=== PATIENT | male | born 1955 | race Caucasian/White ===

== ENCOUNTER 2018-11-29 07:53 | Outpatient (CLI) | payer MEDICARE, OTHER ==
--- NOTE | 2018-11-29 08:22 | ULT ---
Abdominal aortic sonogram HISTORY: Screening. Tobacco abuse. Hypertension. FINDINGS: Good color and spectral Doppler flow within the abdominal aorta and common iliac arteries. Abdominal aorta measures up to 1.7 cm AP diameter. No free fluid within the retroperitoneum. No significant abnormalities demonstrated. IMPRESSION: No sonographic evidence of abdominal aortic aneurysm.
== END 2018-11-29 07:54 | disposition home or self-care (01) ==
LOC: BICULT 07:53
PROVIDERS: ATTEND Family Medicine
DX: F17.200 Nicotine dependence, unspecified, uncomplicated (principal)
CPT/HCPCS: 76775

== ENCOUNTER 2020-07-24 09:02 | Outpatient (CLI) | payer MEDICARE, OTHER ==
--- NOTE | 2020-07-24 09:50 | ULT ---
GALLBLADDER ULTRASOUND: Date: 07/24/2020 INDICATION: Elevated liver function test. FINDINGS: Gallbladder has a normal sonographic appearance. No evidence of gallstones. Common bile duct normal c aliber, measured at 4.0 mm. Liver appears unremarkable. Pancreas partially obscured, but unremarkable as visualized. Right kidney is imaged and is unremarkable in appearance. Negative Saldana's sign is described. IMPRESSION: Unremarkable gallbladder ultrasound. POS: [facility]
== END 2020-07-24 09:03 | disposition home or self-care (01) ==
LOC: BICULT 09:02
PROVIDERS: ATTEND Family Medicine
DX: R94.5 Abnormal results of liver function studies (principal)
CPT/HCPCS: 76705

== ENCOUNTER 2022-06-18 11:50 | Outpatient (CLI) | payer MEDICARE, OTHER | END 2022-06-18 11:51 | disposition home or self-care (01) | LOC: BICULT 11:50 | PROVIDERS: ATTEND Family Medicine | DX: F17.211 Nicotine dependence, cigarettes, in remission (principal) | CPT/HCPCS: 76775 ==

== ENCOUNTER 2023-03-10 18:00 | Inpatient (IN) | payer MEDICARE, OTHER ==
[~2023-03-10 18:00] MED LIST: Iopamidol-370 76% 500 ML MDV (1 ML CHARGE) ONE
[2023-03-10 19:13] LABS: #Eosinphils 0.1 thou/uL (0.0-0.7); #Monocytes 1.7 thou/uL (0.11-0.59); #Neutrophils 7.6 thou/uL (1.40-6.50); %Basophils 0.4 % (0.0-1.0); %Eosinophils 0.4 % (0.0-10.0); %Lymphocytes 16.3 % (21.0-51.0); %Monocytes 15.1 % (0.0-10.0); %Neutrophils 67.4 % (42.0-75.0); Hemoglobin 15.3 g/dL (14.0-18.0); Mean Corpuscular HGB CONC 32.6 g/dL (32.0-36.0); Mean Corpuscular Hemoglobin 28.5 pg (27.0-31.0); Mean Corpuscular Volume 87.5 fl (78.0-98.0); Mean Platelet Volume 10.3 fL (7.4-10.4); Platelet Count 380 10x3/uL (130-400); RBC Distribution Width 13.1 % (11.5-14.5); Red Blood Cell (RBC) Count 5.37 mill/uL (4.70-6.10); White Blood Cell (WBC) Count 11.2 10x3/uL (4.8-10.8)
[2023-03-10 19:26] LABS: INR-International Normal Ratio 1.3; PTT 30.2 sec (22.9-36.1); Prothrombin Time 16.6 sec (12.0-14.7)
[2023-03-10] MEDS ORDERED: Dexamethasone 10 MG/ML VIAL ONE (19:33)
[2023-03-10] MEDS ORDERED: Ondansetron PF 4 MG/2 ML Vial ONE (19:33)
[2023-03-10 19:37] LABS: ALT (SGPT) 16 U/L (8-55); AST (SGOT) 26 U/L (5-34); Albumin 4.1 g/dL (3.4-4.8); Alkaline Phosphatase 128 U/L (40-110); Anion Gap 11 mmol/L (10-20); BUN (Urea Nitrogen) 20 mg/dL (8.4-25.7); Bilirubin, Total 0.7 mg/dL (0.2-1.2); CK (CPK) 95 U/L (30-200); Calc. Creatinine Clearance 0 mL/min (70-130); Calcium 9.6 mg/dL (7.8-10.44); Carbon Dioxide 26 mmol/L (23-31); Chloride 103 mmol/L (98-107); Estimated GFR 73; Globulin 3.1 g/dL (2.4-3.5); Glucose 99 mg/dL (80-115); Potassium 4.4 mmol/L (3.5-5.1); Protein, Total 7.2 g/dL (5.8-8.1); Sodium 136 mmol/L (136-145)
[2023-03-10] MEDS ORDERED: Acetaminophen 325 MG TAB PO PRN (20:32)
[2023-03-10] MEDS ORDERED: Acetaminophen 500 MG TAB ONE (20:32)
[2023-03-10] MEDS ORDERED: Electrolyte Replacement Protocol 1 EACH IVPB SCH (20:32)
[2023-03-10] MEDS ORDERED: Dexamethasone 4 MG in Sodium Chloride 0.9% 50 ML IVPB SCH (21:00)
[2023-03-10] MEDS ORDERED: Atorvastatin Calcium 20 MG TAB PO SCH (21:00)
[2023-03-10] MEDS: Dexamethasone 4 mg/ml Vial SLOW IVP SCH (23:55)
[2023-03-11] MEDS ORDERED: Ipratropium/Albuterol 3 ML NEB NEB PRN (00:17)
[2023-03-11 03:11] VITALS: BMI 26.4
[2023-03-11] MEDS: Dexamethasone 4 mg/ml Vial SLOW IVP SCH ×4 (04:16→21:51)
[2023-03-11 04:18] LABS: #Monocytes 0.1 thou/uL (0.11-0.59); #Neutrophils 7.3 thou/uL (1.40-6.50); %Basophils 0.1 % (0.0-1.0); %Lymphocytes 10.6 % (21.0-51.0); %Monocytes 1.4 % (0.0-10.0); %Neutrophils 87.5 % (42.0-75.0); Hematocrit 45.8 % (42.0-52.0); Hemoglobin 15.1 g/dL (14.0-18.0); Mean Corpuscular Hemoglobin 28.4 pg (27.0-31.0); Mean Corpuscular Volume 86.1 fl (78.0-98.0); Mean Platelet Volume 10.7 fL (7.4-10.4); Platelet Count 349 10x3/uL (130-400); Red Blood Cell (RBC) Count 5.32 mill/uL (4.70-6.10); White Blood Cell (WBC) Count 8.3 10x3/uL (4.8-10.8)
[2023-03-11 04:48] LABS: ALT (SGPT) 15 U/L (8-55); AST (SGOT) 23 U/L (5-34); Albumin 3.8 g/dL (3.4-4.8); Alkaline Phosphatase 123 U/L (40-110); Anion Gap 15 mmol/L (10-20); BUN (Urea Nitrogen) 20 mg/dL (8.4-25.7); Bilirubin, Total 0.6 mg/dL (0.2-1.2); Calc. Creatinine Clearance 83 mL/min (70-130); Calcium 9.3 mg/dL (7.8-10.44); Carbon Dioxide 22 mmol/L (23-31); Chloride 101 mmol/L (98-107); Estimated GFR 82; Globulin 3.4 g/dL (2.4-3.5); Glucose 125 mg/dL (80-115); Magnesium 1.9 mg/dL (1.6-2.6); Potassium 4.4 mmol/L (3.5-5.1); Protein, Total 7.2 g/dL (5.8-8.1); Sodium 134 mmol/L (136-145)
[2023-03-11 04:51] LABS: Phosphorus 3.6 mg/dL (2.3-4.7)
[2023-03-11] MEDS: Divalproex Sodium DR 500 MG TAB PO SCH (07:41)
[2023-03-11] MEDS: Losartan 25 MG TAB PO SCH (07:41)
[2023-03-11] MEDS: Metoprolol Tartrate 50 MG TAB PO SCH ×2 (07:41→19:42)
[2023-03-11] MEDS ORDERED: Magnesium 2 GM/50 ML(in water) 2 GM in Premix Bag 1 BAG IVPB SCH (08:00)
[2023-03-11] MEDS ORDERED: Magnevist 469MG/ML 20 ML VIAL ONE (10:52)
[2023-03-11] MEDS: Atorvastatin Calcium 20 MG TAB PO SCH (19:42)
[2023-03-12] MEDS: Dexamethasone 4 mg/ml Vial SLOW IVP SCH ×4 (04:15→21:02)
[2023-03-12 04:24] LABS: #Monocytes 1.4 thou/uL (0.11-0.59); #Neutrophils 19.6 thou/uL (1.40-6.50); %Basophils 0.1 % (0.0-1.0); %Lymphocytes 5.8 % (21.0-51.0); %Neutrophils 87.5 % (42.0-75.0); Hematocrit 42.8 % (42.0-52.0); Hemoglobin 14.4 g/dL (14.0-18.0); Mean Corpuscular HGB CONC 33.6 g/dL (32.0-36.0); Mean Corpuscular Hemoglobin 28.5 pg (27.0-31.0); Mean Corpuscular Volume 84.6 fl (78.0-98.0); Mean Platelet Volume 11.3 fL (7.4-10.4); Platelet Count 397 10x3/uL (130-400); RBC Distribution Width 13.1 % (11.5-14.5); Red Blood Cell (RBC) Count 5.06 mill/uL (4.70-6.10); White Blood Cell (WBC) Count 22.4 10x3/uL (4.8-10.8)
[2023-03-12 04:47] LABS: ALT (SGPT) 16 U/L (8-55); AST (SGOT) 22 U/L (5-34); Albumin 3.7 g/dL (3.4-4.8); Alkaline Phosphatase 112 U/L (40-110); Anion Gap 15 mmol/L (10-20); BUN (Urea Nitrogen) 27 mg/dL (8.4-25.7); Bilirubin, Total 0.5 mg/dL (0.2-1.2); Calc. Creatinine Clearance 82 mL/min (70-130); Calcium 9.4 mg/dL (7.8-10.44); Carbon Dioxide 20 mmol/L (23-31); Chloride 104 mmol/L (98-107); Estimated GFR 81; Globulin 3.2 g/dL (2.4-3.5); Glucose 125 mg/dL (80-115); Potassium 4.4 mmol/L (3.5-5.1); Protein, Total 6.9 g/dL (5.8-8.1); Sodium 135 mmol/L (136-145)
[2023-03-12] MEDS: Sodium Chloride 0.9% 1,000 ML IV SCH (05:53)
[2023-03-12] MEDS: Metoprolol Tartrate 50 MG TAB PO SCH ×2 (07:42→21:02)
[2023-03-12] MEDS ORDERED: fentaNYL PF 100 MCG/2 ML SYRINGE ONE (09:33)
[2023-03-12] MEDS ORDERED: Midazolam HCl 2 mg/2 ml Vial ONE (09:33)
[2023-03-12] MEDS ORDERED: Lidocaine 1% PF 5 ML VIAL ONE (09:59)
[2023-03-12] MEDS ORDERED: PROPOFOL 200 MG/20 ML VIAL ONE (09:59)
[2023-03-12] MEDS ORDERED: Rocuronium Bromide 10 MG/ML (10ML VIAL) ONE (09:59)
[2023-03-12] MEDS: Divalproex Sodium DR 500 MG TAB PO SCH (12:11)
[2023-03-12] MEDS: Losartan 25 MG TAB PO SCH (12:11)
[2023-03-12] MEDS ORDERED: Divalproex Sodium DR 500 MG TAB PO SCH (14:00)
[2023-03-12 16:10] VITALS: BP 97/63
[2023-03-12] MEDS: Atorvastatin Calcium 20 MG TAB PO SCH (21:02)
[2023-03-13] MEDS: Sodium Chloride 0.9% 1,000 ML IV SCH (01:44)
[2023-03-13] MEDS: Dexamethasone 4 mg/ml Vial SLOW IVP SCH ×2 (03:07→08:59)
[2023-03-13 03:49] LABS: #Monocytes 1.4 thou/uL (0.11-0.59); #Neutrophils 19.7 thou/uL (1.40-6.50); %Basophils 0.1 % (0.0-1.0); %Monocytes 6.1 % (0.0-10.0); %Neutrophils 88.2 % (42.0-75.0); Hematocrit 43.1 % (42.0-52.0); Hemoglobin 13.9 g/dL (14.0-18.0); Mean Corpuscular HGB CONC 32.3 g/dL (32.0-36.0); Mean Corpuscular Hemoglobin 28.7 pg (27.0-31.0); Mean Platelet Volume 10.9 fL (7.4-10.4); Platelet Count 349 10x3/uL (130-400); RBC Distribution Width 13.5 % (11.5-14.5); Red Blood Cell (RBC) Count 4.84 mill/uL (4.70-6.10); White Blood Cell (WBC) Count 22.4 10x3/uL (4.8-10.8)
[2023-03-13 04:14] LABS: ALT (SGPT) 18 U/L (8-55); AST (SGOT) 23 U/L (5-34); Albumin 3.5 g/dL (3.4-4.8); Alkaline Phosphatase 103 U/L (40-110); Anion Gap 13 mmol/L (10-20); BUN (Urea Nitrogen) 28 mg/dL (8.4-25.7); Bilirubin, Total 0.4 mg/dL (0.2-1.2); Calc. Creatinine Clearance 101 mL/min (70-130); Calcium 8.9 mg/dL (7.8-10.44); Carbon Dioxide 21 mmol/L (23-31); Chloride 107 mmol/L (98-107); Estimated GFR 95; Glucose 112 mg/dL (80-115); Potassium 4.4 mmol/L (3.5-5.1); Protein, Total 6.5 g/dL (5.8-8.1); Sodium 137 mmol/L (136-145)
[2023-03-13] MEDS: Losartan 25 MG TAB PO SCH (08:57)
[2023-03-13] MEDS: Metoprolol Tartrate 50 MG TAB PO SCH (08:57)
[2023-03-13] MEDS ORDERED: Divalproex Sodium DR 500 MG TAB PO SCH ×2 (09:00)
[2023-03-13 11:57] VITALS: TEMP 97.4
== END 2023-03-13 15:20 | disposition home or self-care (01) | DRG 166 ==
LOC: ERS 18:00 → ERHOLD 19:35 → IMCU/EMU 03-11 00:46
PROVIDERS: ADMIT Family Medicine; ATTEND Family Medicine
PROC: 0BBD8ZX Excision of Right Middle Lung Lobe, Via Natural or Artificial Opening Endoscopic, Diagnostic (ICD-10-PCS; principal; 2023-03-12)
PROC: 0BD58ZX Extraction of Right Middle Lobe Bronchus, Via Natural or Artificial Opening Endoscopic, Diagnostic (ICD-10-PCS; 2023-03-12)
PROC: 0BB68ZX Excision of Right Lower Lobe Bronchus, Via Natural or Artificial Opening Endoscopic, Diagnostic (ICD-10-PCS; 2023-03-12)
PROC: 0BB58ZX Excision of Right Middle Lobe Bronchus, Via Natural or Artificial Opening Endoscopic, Diagnostic (ICD-10-PCS; 2023-03-12)
PROC: 4A10X4Z Monitoring of Central Nervous Electrical Activity, External Approach (ICD-10-PCS; 2023-03-13)
DX: R91.1 Solitary pulmonary nodule (principal); G93.6 Cerebral edema; I48.92 Unspecified atrial flutter; C79.31 Secondary malignant neoplasm of brain; G91.9 Hydrocephalus, unspecified; G93.9 Disorder of brain, unspecified; I12.9 Hypertensive chronic kidney disease with stage 1 through stage 4 chronic kidney disease, or unspecified chronic kidney disease; N18.2 Chronic kidney disease, stage 2 (mild); G40.909 Epilepsy, unspecified, not intractable, without status epilepticus; E78.5 Hyperlipidemia, unspecified; D63.1 Anemia in chronic kidney disease; R91.8 Other nonspecific abnormal finding of lung field; I48.91 Unspecified atrial fibrillation; R53.1 Weakness; Z90.89 Acquired absence of other organs; Z98.890 Other specified postprocedural states; Z87.891 Personal history of nicotine dependence
CPT/HCPCS: 36415; 70450; 70553; 71045; 71260; 74177; 80053; 80164; 82550; 83605; 83735; 84100; 84484; 85025; 85610; 85730; 86140; 86850; 86900; 86901; 88112; 88305; 93005; 94760; 95712; 95819; 95957; 96374; 96375; A9579; J1100; J2250; J2405; J2704; J3475; J7050; Q9967

== ENCOUNTER 2023-03-20 13:47 | Outpatient (CLI) | payer MEDICARE, OTHER ==
[2023-03-20 14:50] LABS: Hematocrit 39.3 % (38.8-50.0); Hemoglobin 13.1 g/dL (13.5-17.5); Mean Corpuscular HGB CONC 33.3 g/dL (32.0-36.0); Mean Corpuscular Hemoglobin 28.8 pg (27.0-33.0); Mean Corpuscular Volume 86.4 fl (81.2-95.1); Mean Platelet Volume 11.9 fl (7.4-10.4); Platelet Count 263 10x3/uL (150-450); RBC Distribution Width 13.9 % (11.5-14.5); Red Blood Cell (RBC) Count 4.55 10x6/uL (4.32-5.72); White Blood Cell (WBC) Count 18.4 10x3/uL (3.5-10.5)
[2023-03-20 14:52] LABS: Anion Gap 13 mmol/L (10-20); BUN (Urea Nitrogen) 22 mg/dL (8.4-25.7); Calc. Creatinine Clearance 0 mL/min (70-130); Calcium 8.9 mg/dL (7.8-10.44); Carbon Dioxide 27 mmol/L (23-31); Chloride 103 mmol/L (98-107); Estimated GFR 93; Glucose 108 mg/dL (80-115); Potassium 4.5 mmol/L (3.5-5.1); Sodium 138 mmol/L (136-145)
== END 2023-03-20 13:48 | disposition home or self-care (01) ==
LOC: LABBT 13:47
PROVIDERS: ATTEND Neurological Surgery
DX: Z01.812 Encounter for preprocedural laboratory examination (principal); D49.6 Neoplasm of unspecified behavior of brain
CPT/HCPCS: 80048; 85027

== ENCOUNTER 2023-03-20 14:00 | Inpatient (IN) | payer MEDICARE, OTHER ==
[2023-03-23] MEDS ORDERED: Bacitracin Zinc Ointment 30 gm TUBE ONE (10:08)
[2023-03-23] MEDS ORDERED: Papaverine 60 MG/2 ML VIAL ONE (10:54)
[2023-03-23] MEDS ORDERED: Thrombin 5000 UNITS/5 ML VIAL ONE (10:55)
[2023-03-23] MEDS ORDERED: Fentanyl 250 MCG/5 ML VIAL ONE (11:08)
[2023-03-23] MEDS ORDERED: Midazolam HCl 2 mg/2 ml Vial ONE (11:08)
[2023-03-23] MEDS ORDERED: CEFAZOLIN 2 GM VIAL ONE (11:09)
[2023-03-23] MEDS ORDERED: Sodium Chloride 0.9% 100 ML ONE (11:09)
[2023-03-23] MEDS ORDERED: Dexamethasone 20 MG/5 ML VIAL ONE (11:17)
[2023-03-23] MEDS ORDERED: Rocuronium Bromide 10 MG/ML (10ML VIAL) ONE (11:17)
[2023-03-23] MEDS ORDERED: PROPOFOL 200 MG/20 ML VIAL ONE (11:17)
[2023-03-23] MEDS ORDERED: Glycopyrrolate 0.2 MG/ML 5 ML SYRINGE ONE (11:17)
[2023-03-23] MEDS ORDERED: Lidocaine 1% PF 5 ML VIAL ONE (11:17)
[2023-03-23] MEDS ORDERED: Ondansetron PF 4 MG/2 ML Vial ONE (11:17)
[2023-03-23] MEDS ORDERED: ePHEDrine Sulfate 50 MG/10 ML VIAL ONE (11:17)
[2023-03-23] MEDS ORDERED: HYDROcodone/Acetaminophen 10/325 mg Tablet PO PRN (11:32)
[2023-03-23] MEDS ORDERED: Ondansetron PF 4 MG/2 ML Vial IVP PRN (11:32)
[2023-03-23] MEDS ORDERED: Docusate 100 MG CAP PO PRN (11:32)
[2023-03-23] MEDS ORDERED: hydrALAZINE 20 MG/ML VIAL SLOW IVP PRN (11:32)
[2023-03-23] MEDS ORDERED: Labetalol HCl 100 MG/20 ML VIAL SLOW IVP PRN (11:32)
[2023-03-23] MEDS ORDERED: Mag-Al 1200 mg/1200 mg/30 ML UDCUP PO PRN (11:32)
[2023-03-23] MEDS ORDERED: Promethazine 25 MG TAB PO PRN (11:32)
[2023-03-23] MEDS ORDERED: diphenhydrAMINE 50 MG/ML VIAL IVP PRN (11:32)
[2023-03-23] MEDS ORDERED: Morphine 2 MG/ML VIAL SLOW IVP PRN (11:32)
[2023-03-23] MEDS ORDERED: SUGAMMADEX SODIUM 200 MG/2 ML VIAL ONE (13:21)
[2023-03-23] MEDS ORDERED: niCARdipine 25 MG in Sodium Chloride 0.9% 250 ML 250 ML IVPB SCH (13:30)
[2023-03-23] MEDS ORDERED: HYDROmorphone 2 MG/ML VIAL SLOW IVP PRN (13:43)
[2023-03-23] MEDS ORDERED: Ondansetron HCl/PF 4 MG/2 ML Vial IVP PRN (13:43)
[2023-03-23] MEDS ORDERED: Promethazine HCl 25 MG/ML VIAL IM PRN (13:43)
[2023-03-23] MEDS ORDERED: fentaNYL 50 mcg/mL 1 mL Vial ONE (16:06)
[2023-03-23] MEDS: Dexamethasone 4 mg/ml Vial SLOW IVP SCH ×2 (16:41→20:59)
[2023-03-23] MEDS: Sodium Chloride 0.9% 1,000 ML IV SCH ×3 (16:41→21:00)
[2023-03-23 16:44] VITALS: BMI 29.8
[2023-03-23] MEDS: CEFAZOLIN 2 GM in Sodium Chloride 0.9% 100 ML IVPB SCH (18:32)
[2023-03-23] MEDS: Divalproex Sodium DR 500 MG TAB PO SCH (21:07)
[2023-03-23] MEDS: Famotidine 20 MG TAB PO SCH (21:08)
[2023-03-23] MEDS: Metoprolol Tartrate 50 MG TAB PO SCH (21:08)
[2023-03-24] MEDS: CEFAZOLIN 2 GM in Sodium Chloride 0.9% 100 ML IVPB SCH (02:06)
[2023-03-24] MEDS: Dexamethasone 4 mg/ml Vial SLOW IVP SCH ×2 (04:26→15:28)
[2023-03-24] MEDS: HYDROcodone/Acetaminophen 10/325 mg Tablet PO PRN ×2 (04:34→14:52)
[2023-03-24] MEDS ORDERED: Dexamethasone 4 mg/ml Vial SLOW IVP SCH (06:15)
[2023-03-24] MEDS ORDERED: niCARdipine 25 MG in Sodium Chloride 0.9% 250 ML 250 ML IVPB SCH (06:38)
[2023-03-24] MEDS: Famotidine 20 MG TAB PO SCH (08:37)
[2023-03-24] MEDS: Metoprolol Tartrate 50 MG TAB PO SCH ×2 (08:37→20:46)
[2023-03-24] MEDS: Divalproex Sodium DR 500 MG TAB PO SCH ×2 (08:37→21:13)
[2023-03-24] MEDS ORDERED: Losartan 25 MG TAB PO SCH (09:00)
[2023-03-24 16:35] VITALS: BP 136/58
[2023-03-24] MEDS: Sodium Chloride 0.9% 1,000 ML IV SCH (17:16)
[2023-03-25 00:54] VITALS: TEMP 97.9
[2023-03-25] MEDS: Sodium Chloride 0.9% 1,000 ML IV SCH (04:22)
[2023-03-25] MEDS: Dexamethasone 4 mg/ml Vial SLOW IVP SCH (04:23)
[2025-03-23] MEDS ORDERED: Mannitol 12.5 GM/50 ML ONE (11:17)
== END 2023-03-25 08:19 | disposition home or self-care (01) | DRG 27 ==
LOC: SURG A 03-23 07:42 → CCU 03-23 16:38
PROVIDERS: ADMIT Neurological Surgery; ATTEND Neurological Surgery
PROC: 00B00ZX Excision of Brain, Open Approach, Diagnostic (ICD-10-PCS; principal; 2023-03-23)
DX: D49.6 Neoplasm of unspecified behavior of brain (principal); G40.909 Epilepsy, unspecified, not intractable, without status epilepticus; I10 Essential (primary) hypertension; E78.5 Hyperlipidemia, unspecified; Z90.49 Acquired absence of other specified parts of digestive tract; Z98.890 Other specified postprocedural states; Z87.891 Personal history of nicotine dependence
CPT/HCPCS: 88307; 88341; 88342; C1713; J1100; J2150; J2250; J2405; J2440; J2704; J3010; J3490; J7050; Q4107

== ENCOUNTER 2023-04-14 10:05 | Day surgery (SDC) | payer MEDICARE, OTHER ==
[2023-04-10 11:11] VITALS: BMI 27.8
[2023-04-14] MEDS ORDERED: Acetaminophen 500 MG TAB ONE (11:58)
[2023-04-14] MEDS ORDERED: Ketorolac Tromethamine 30 MG/ML VIAL ONE (11:58)
[2023-04-14 12:45] LABS: #Eosinphils 0.1 thou/uL (0.0-0.7); #Monocytes 1.3 thou/uL (0.11-0.59); #Neutrophils 4.5 thou/uL (1.40-6.50); %Basophils 0.5 % (0.0-1.0); %Eosinophils 0.8 % (0.0-10.0); %Lymphocytes 19.9 % (21.0-51.0); %Monocytes 17.3 % (0.0-10.0); %Neutrophils 60.4 % (42.0-75.0); Hemoglobin 12.3 g/dL (14.0-18.0); Mean Corpuscular HGB CONC 32.4 g/dL (32.0-36.0); Mean Corpuscular Hemoglobin 28.7 pg (27.0-31.0); Mean Corpuscular Volume 88.8 fl (78.0-98.0); Mean Platelet Volume 9.4 fL (7.4-10.4); Platelet Count 582 10x3/uL (130-400); RBC Distribution Width 15.3 % (11.5-14.5); Red Blood Cell (RBC) Count 4.28 mill/uL (4.70-6.10); White Blood Cell (WBC) Count 7.5 10x3/uL (4.8-10.8)
[2023-04-14] MEDS ORDERED: EPINEPHrine 1 MG/ML AMP ONE (13:02)
[2023-04-14] MEDS ORDERED: Heparin 5,000 UNITS/ML VIAL ONE (13:02)
[2023-04-14] MEDS ORDERED: Lidocaine 1% (PF) 30 ML VIAL ONE (13:02)
[2023-04-14] MEDS ORDERED: Bupivacaine 0.25% HCL 30 ML VIAL ONE (13:02)
[2023-04-14 13:08] LABS: Anion Gap 12 mmol/L (10-20); BUN (Urea Nitrogen) 16 mg/dL (8.4-25.7); Calc. Creatinine Clearance 97 mL/min (70-130); Calcium 9.6 mg/dL (7.8-10.44); Carbon Dioxide 26 mmol/L (23-31); Chloride 102 mmol/L (98-107); Estimated GFR 90; Glucose 87 mg/dL (80-115); Potassium 4.2 mmol/L (3.5-5.1); Sodium 136 mmol/L (136-145)
[2023-04-14] MEDS ORDERED: fentaNYL PF 100 MCG/2 ML SYRINGE ONE (14:02)
[2023-04-14] MEDS ORDERED: Lidocaine 2% PF 5 ML VIAL ONE (14:49)
[2023-04-14] MEDS ORDERED: CEFAZOLIN 2 GM VIAL ONE (14:51)
[2023-04-14] MEDS ORDERED: Sodium Chloride 0.9% 100 ML ONE (14:51)
[2023-04-14] MEDS ORDERED: Lidocaine 1% PF 5 ML VIAL ONE (15:04)
[2023-04-14] MEDS ORDERED: PROPOFOL 200 MG/20 ML VIAL ONE (15:04)
[2023-04-14] MEDS ORDERED: Ondansetron PF 4 MG/2 ML Vial ONE (15:04)
== END 2023-04-14 16:53 | disposition home or self-care (01) ==
LOC: SDC 10:05
PROVIDERS: ATTEND Specialist
PROC: 0JH60WZ Insertion of Totally Implantable Vascular Access Device into Chest Subcutaneous Tissue and Fascia, Open Approach (ICD-10-PCS; principal; 2023-04-14)
DX: C34.90 Malignant neoplasm of unspecified part of unspecified bronchus or lung (principal); C79.31 Secondary malignant neoplasm of brain
CPT/HCPCS: 36561; 70553; 71045; 80048; 85025; C1788; 36415; A9579; J0171; J1642; J1644; J1885; J2001; J2405; J2704; J3490; S0020

== ENCOUNTER 2023-05-18 10:27 | Inpatient (IN) | payer MEDICARE, OTHER ==
[2023-05-18] MEDS ORDERED: cefTRIAXone (ROCEPHIN) 2 GM VIAL ONE (10:50)
[2023-05-18] MEDS ORDERED: Ondansetron PF 4 MG/2 ML Vial ONE (10:50)
[2023-05-18] MEDS ORDERED: Morphine 4 MG/ML VIAL ONE (10:50)
[2023-05-18 11:05] LABS: #Monocytes 2.1 thou/uL (0.11-0.59); #Neutrophils 9.7 thou/uL (1.40-6.50); %Basophils 0.2 % (0.0-1.0); %Eosinophils 0.3 % (0.0-10.0); %Lymphocytes 7.4 % (21.0-51.0); %Monocytes 16.1 % (0.0-10.0); %Neutrophils 75.5 % (42.0-75.0); Hematocrit 46.8 % (42.0-52.0); Mean Corpuscular HGB CONC 32.1 g/dL (32.0-36.0); Mean Corpuscular Hemoglobin 28.6 pg (27.0-31.0); Mean Corpuscular Volume 89.3 fl (78.0-98.0); Mean Platelet Volume 10.2 fL (7.4-10.4); Platelet Count 234 10x3/uL (130-400); RBC Distribution Width 17.1 % (11.5-14.5); Red Blood Cell (RBC) Count 5.24 mill/uL (4.70-6.10); White Blood Cell (WBC) Count 12.9 10x3/uL (4.8-10.8)
[2023-05-18 11:06] LABS: Actual Bicarbonate (HCO3v) 21.8 mEq/L (22-28); Analyzer IN Cardio ER; Base Excess -2.4 mEq/L (-2.0 to +3.0); Calcium, Ionized (venous) 1.18 mmol/L (1.16-1.32); Chloride (VBG) 112 mmol/L (98-106); Hematocrit-VBG 59 % (42.0-52.0); pH (venous) 7.391 (7.32-7.43)
[2023-05-18 11:06] LABS: INR-International Normal Ratio 1.4; PTT 29.1 sec (22.9-36.1); Prothrombin Time 17.7 sec (12.0-14.7)
[2023-05-18 11:10] LABS: Sodium 153 mmol/L (133-146)
[2023-05-18 11:13] LABS: ALT (SGPT) 38 U/L (8-55); AST (SGOT) 53 U/L (5-34); Albumin 3.8 g/dL (3.4-4.8); Alkaline Phosphatase 169 U/L (40-110); Anion Gap 17 mmol/L (10-20); BUN (Urea Nitrogen) 53 mg/dL (8.4-25.7); Bilirubin, Total 1.7 mg/dL (0.2-1.2); Calc. Creatinine Clearance 0 mL/min (70-130); Calcium 9.6 mg/dL (7.8-10.44); Carbon Dioxide 23 mmol/L (23-31); Chloride 115 mmol/L (98-107); Estimated GFR 56; Globulin 3.3 g/dL (2.4-3.5); Glucose 148 mg/dL (80-115); Potassium 3.8 mmol/L (3.5-5.1); Protein, Total 7.1 g/dL (5.8-8.1)
[2023-05-18 11:18] LABS: Sodium 151 mmol/L (136-145)
[2023-05-18 11:37] LABS: CK (CPK) 1092 U/L (30-200); Magnesium 2.9 mg/dL (1.6-2.6)
[2023-05-18 11:46] LABS: Troponin I 0.085 ng/mL (< 0.028)
[2023-05-18] MEDS ORDERED: Acetaminophen 325 MG TAB PO PRN (13:17)
[2023-05-18] MEDS ORDERED: Ondansetron ODT 4 MG TAB PO PRN (13:17)
[2023-05-18 14:04] LABS: Lactic Acid 1.5 mmol/L (0.5-2.2)
[2023-05-18] MEDS ORDERED: Pantoprazole 40 MG VIAL IVP SCH (16:15)
[2023-05-18 17:32] VITALS: BMI 24.0
[2023-05-18] MEDS: Lactated Ringer's 1,000 ML IV SCH (17:36)
[2023-05-18] MEDS ORDERED: [UNRECOGNIZED DRUG - OTHER] IVPB PRN (17:53)
[2023-05-18] MEDS: Cefepime 2 GM in Sodium Chloride 0.9% 100 ML IVPB SCH (18:19)
[2023-05-18 18:34] LABS: Troponin I 0.081 ng/mL (< 0.028)
[2023-05-18] MEDS ORDERED: VANCOMYCIN 2 GRAM/500 ML BAG 2 GM in Premix Bag 1 BAG IVPB SCH (20:00)
[2023-05-19] MEDS: Lactated Ringer's 1,000 ML IV SCH ×3 (00:19→18:00)
[2023-05-19 05:28] LABS: #Eosinphils 0.1 thou/uL (0.0-0.7); #Monocytes 1.5 thou/uL (0.11-0.59); #Neutrophils 5.5 thou/uL (1.40-6.50); %Basophils 0.1 % (0.0-1.0); %Eosinophils 1.6 % (0.0-10.0); %Lymphocytes 12.8 % (21.0-51.0); %Neutrophils 66.9 % (42.0-75.0); Hematocrit 41.1 % (42.0-52.0); Mean Corpuscular HGB CONC 31.6 g/dL (32.0-36.0); Mean Corpuscular Hemoglobin 28.7 pg (27.0-31.0); Mean Corpuscular Volume 90.7 fl (78.0-98.0); Mean Platelet Volume 10.6 fL (7.4-10.4); Platelet Count 164 10x3/uL (130-400); RBC Distribution Width 16.8 % (11.5-14.5); Red Blood Cell (RBC) Count 4.53 mill/uL (4.70-6.10); White Blood Cell (WBC) Count 8.2 10x3/uL (4.8-10.8)
[2023-05-19 06:02] LABS: ALT (SGPT) 30 U/L (8-55); AST (SGOT) 33 U/L (5-34); Alkaline Phosphatase 152 U/L (40-110); Anion Gap 15 mmol/L (10-20); BUN (Urea Nitrogen) 42 mg/dL (8.4-25.7); Bilirubin, Total 1.2 mg/dL (0.2-1.2); Calc. Creatinine Clearance 78 mL/min (70-130); Calcium 8.3 mg/dL (7.8-10.44); Carbon Dioxide 21 mmol/L (23-31); Chloride 114 mmol/L (98-107); Estimated GFR 82; Globulin 2.6 g/dL (2.4-3.5); Glucose 135 mg/dL (80-115); Magnesium 2.4 mg/dL (1.6-2.6); Potassium 3.7 mmol/L (3.5-5.1); Protein, Total 5.6 g/dL (5.8-8.1); Sodium 146 mmol/L (136-145)
[2023-05-19] MEDS: Cefepime 2 GM in Sodium Chloride 0.9% 100 ML IVPB SCH ×2 (06:40→18:00)
[2023-05-19] MEDS: Acetaminophen 500 MG TAB PO PRN (07:24)
[2023-05-19] MEDS ORDERED: Divalproex Sodium DR 500 MG TAB PO SCH (09:00)
[2023-05-19] MEDS: Metoprolol Tartrate 50 MG TAB PO SCH ×2 (09:35→20:51)
[2023-05-19] MEDS: Losartan 25 MG TAB PO SCH (09:35)
[2023-05-19] MEDS ORDERED: fentaNYL PF 100 MCG/2 ML SYRINGE ONE (11:58)
[2023-05-19] MEDS ORDERED: PROPOFOL 200 MG/20 ML VIAL ONE (14:00)
[2023-05-19] MEDS ORDERED: Rocuronium Bromide 10 MG/ML (10ML VIAL) ONE (14:00)
[2023-05-19] MEDS ORDERED: Ondansetron PF 4 MG/2 ML Vial ONE (14:00)
[2023-05-19] MEDS ORDERED: Lidocaine 1% PF 5 ML VIAL ONE (14:00)
[2023-05-19] MEDS ORDERED: Dexamethasone 20 MG/5 ML VIAL ONE (14:00)
[2023-05-19] MEDS ORDERED: ePHEDrine Sulfate 50 MG/10 ML VIAL ONE (14:00)
[2023-05-19] MEDS ORDERED: PHENYLEPHRINE-NS 100 MCG/ML 10 ML SYRINGE ONE (14:00)
[2023-05-19] MEDS ORDERED: Promethazine HCl 25 MG/ML VIAL IM PRN (15:15)
[2023-05-19] MEDS ORDERED: Ondansetron HCl/PF 4 MG/2 ML Vial IVP PRN (15:15)
[2023-05-19] MEDS ORDERED: Ketorolac Tromethamine 30 MG/ML VIAL IVP PRN (17:37)
[2023-05-19] MEDS ORDERED: traMADol HCl 50 MG TAB PO SCH (17:45)
[2023-05-19] MEDS: Vancomycin 1.5 GM in Premix Bag 1 BAG IVPB SCH ×2 (20:51→22:06)
[2023-05-19] MEDS: traMADol HCl 50 MG TAB PO SCH (22:34)
[2023-05-19] MEDS: Vancomycin 1.5 GRAM/300 ML BAG 1.5 GM in Premix Bag 1 BAG IVPB SCH (22:35)
[2023-05-20] MEDS: traMADol HCl 50 MG TAB PO SCH ×4 (01:56→09:19)
[2023-05-20 04:25] LABS: #Eosinphils 0.2 thou/uL (0.0-0.7); #Neutrophils 3.1 thou/uL (1.40-6.50); %Basophils 0.2 % (0.0-1.0); %Eosinophils 3.4 % (0.0-10.0); %Lymphocytes 17.9 % (21.0-51.0); %Monocytes 19.5 % (0.0-10.0); %Neutrophils 58.4 % (42.0-75.0); Hematocrit 35.2 % (42.0-52.0); Hemoglobin 11.3 g/dL (14.0-18.0); Mean Corpuscular HGB CONC 32.1 g/dL (32.0-36.0); Mean Corpuscular Hemoglobin 28.8 pg (27.0-31.0); Mean Corpuscular Volume 89.8 fl (78.0-98.0); Mean Platelet Volume 10.5 fL (7.4-10.4); RBC Distribution Width 16.7 % (11.5-14.5); Red Blood Cell (RBC) Count 3.92 mill/uL (4.70-6.10); White Blood Cell (WBC) Count 5.2 10x3/uL (4.8-10.8)
[2023-05-20 04:49] LABS: Phosphorus 2.9 mg/dL (2.3-4.7)
[2023-05-20 05:00] LABS: ALT (SGPT) 29 U/L (8-55); AST (SGOT) 31 U/L (5-34); Albumin 2.8 g/dL (3.4-4.8); Alkaline Phosphatase 128 U/L (40-110); Anion Gap 10 mmol/L (10-20); BUN (Urea Nitrogen) 28 mg/dL (8.4-25.7); Bilirubin, Total 0.7 mg/dL (0.2-1.2); Calc. Creatinine Clearance 91 mL/min (70-130); Calcium 8.4 mg/dL (7.8-10.44); Carbon Dioxide 25 mmol/L (23-31); Chloride 114 mmol/L (98-107); Estimated GFR 94; Globulin 2.1 g/dL (2.4-3.5); Glucose 111 mg/dL (80-115); Magnesium 2.1 mg/dL (1.6-2.6); Potassium 3.7 mmol/L (3.5-5.1); Protein, Total 4.9 g/dL (5.8-8.1); Sodium 145 mmol/L (136-145)
[2023-05-20] MEDS: Lactated Ringer's 1,000 ML IV SCH ×2 (05:22→19:18)
[2023-05-20] MEDS: Cefepime 2 GM in Sodium Chloride 0.9% 100 ML IVPB SCH (05:22)
[2023-05-20 05:40] LABS: Platelet Count 132 10x3/uL (130-400)
[2023-05-20] MEDS: Losartan 25 MG TAB PO SCH (09:18)
[2023-05-20] MEDS: Metoprolol Tartrate 50 MG TAB PO SCH ×2 (09:18→21:47)
[2023-05-20] MEDS: Divalproex Sodium DR 500 MG TAB PO SCH (09:19)
[2023-05-20] MEDS ORDERED: traMADol HCl 50 MG TAB PO PRN (11:20)
[2023-05-20] MEDS: Dexamethasone 4 mg/ml Vial SLOW IVP SCH ×2 (18:14→23:54)
[2023-05-20 20:09] LABS: Vancomycin, Trough 7.7 ug/mL
[2023-05-20] MEDS: Vancomycin 1 GM in Premix Bag 1 BAG IVPB SCH (21:47)
[2023-05-20] MEDS: Vancomycin 1.5 GRAM/300 ML BAG 1.5 GM in Premix Bag 1 BAG IVPB SCH (21:57)
[2023-05-21] MEDS: Lactated Ringer's 1,000 ML IV SCH ×2 (04:40→17:06)
[2023-05-21 05:01] LABS: #Monocytes 0.5 thou/uL (0.11-0.59); #Neutrophils 3.8 thou/uL (1.40-6.50); %Basophils 0.2 % (0.0-1.0); %Monocytes 9.4 % (0.0-10.0); %Neutrophils 78.4 % (42.0-75.0); Hematocrit 35.8 % (42.0-52.0); Hemoglobin 11.6 g/dL (14.0-18.0); Mean Corpuscular HGB CONC 32.4 g/dL (32.0-36.0); Mean Corpuscular Hemoglobin 28.7 pg (27.0-31.0); Mean Corpuscular Volume 88.6 fl (78.0-98.0); Mean Platelet Volume 10.8 fL (7.4-10.4); Platelet Count 154 10x3/uL (130-400); RBC Distribution Width 16.3 % (11.5-14.5); Red Blood Cell (RBC) Count 4.04 mill/uL (4.70-6.10); White Blood Cell (WBC) Count 4.8 10x3/uL (4.8-10.8)
[2023-05-21] MEDS: Dexamethasone 4 mg/ml Vial SLOW IVP SCH ×4 (05:28→23:27)
[2023-05-21 05:48] LABS: ALT (SGPT) 29 U/L (8-55); AST (SGOT) 31 U/L (5-34); Albumin 2.8 g/dL (3.4-4.8); Alkaline Phosphatase 152 U/L (40-110); Anion Gap 13 mmol/L (10-20); BUN (Urea Nitrogen) 20 mg/dL (8.4-25.7); Bilirubin, Total 0.9 mg/dL (0.2-1.2); Calc. Creatinine Clearance 110 mL/min (70-130); Calcium 8.6 mg/dL (7.8-10.44); Carbon Dioxide 25 mmol/L (23-31); Chloride 110 mmol/L (98-107); Estimated GFR 100; Globulin 2.5 g/dL (2.4-3.5); Glucose 121 mg/dL (80-115); Potassium 4.5 mmol/L (3.5-5.1); Protein, Total 5.3 g/dL (5.8-8.1); Sodium 143 mmol/L (136-145)
[2023-05-21] MEDS ORDERED: FLU VACC QS2023(65UP)/MF59C/PF 60 MCG/0.5 ML SYRINGE IM ONE (09:00)
[2023-05-21] MEDS: Bacitracin Zinc Ointment 30 gm TUBE TOP SCH (10:00)
[2023-05-21] MEDS: Divalproex Sodium DR 500 MG TAB PO SCH (10:04)
[2023-05-21] MEDS: Metoprolol Tartrate 50 MG TAB PO SCH ×2 (10:04→20:52)
[2023-05-21] MEDS: Vancomycin 1 GM in Premix Bag 1 BAG IVPB SCH ×2 (10:04→22:00)
[2023-05-21] MEDS: Losartan 25 MG TAB PO SCH (10:05)
[2023-05-21] MEDS ORDERED: Lidocaine 4% Topical Sol 50 ML BOT TOP SCH (10:30)
[2023-05-22] MEDS: Lactated Ringer's 1,000 ML IV SCH ×3 (01:39→18:56)
[2023-05-22 04:38] LABS: #Monocytes 0.9 thou/uL (0.11-0.59); #Neutrophils 4.1 thou/uL (1.40-6.50); %Basophils 0.2 % (0.0-1.0); %Lymphocytes 12.7 % (21.0-51.0); %Monocytes 14.6 % (0.0-10.0); %Neutrophils 70.1 % (42.0-75.0); Hematocrit 32.2 % (42.0-52.0); Hemoglobin 10.7 g/dL (14.0-18.0); Mean Corpuscular HGB CONC 33.2 g/dL (32.0-36.0); Mean Corpuscular Hemoglobin 29.2 pg (27.0-31.0); Mean Corpuscular Volume 87.7 fl (78.0-98.0); Mean Platelet Volume 11.6 fL (7.4-10.4); Platelet Count 174 10x3/uL (130-400); RBC Distribution Width 15.9 % (11.5-14.5); Red Blood Cell (RBC) Count 3.67 mill/uL (4.70-6.10); White Blood Cell (WBC) Count 5.9 10x3/uL (4.8-10.8)
[2023-05-22 05:06] LABS: ALT (SGPT) 28 U/L (8-55); AST (SGOT) 28 U/L (5-34); Albumin 2.7 g/dL (3.4-4.8); Alkaline Phosphatase 143 U/L (40-110); Anion Gap 11 mmol/L (10-20); BUN (Urea Nitrogen) 20 mg/dL (8.4-25.7); Bilirubin, Total 0.7 mg/dL (0.2-1.2); Calc. Creatinine Clearance 117 mL/min (70-130); Calcium 8.7 mg/dL (7.8-10.44); Carbon Dioxide 26 mmol/L (23-31); Chloride 109 mmol/L (98-107); Estimated GFR 102; Globulin 2.3 g/dL (2.4-3.5); Glucose 126 mg/dL (80-115); Potassium 4.1 mmol/L (3.5-5.1); Sodium 142 mmol/L (136-145)
[2023-05-22] MEDS: Dexamethasone 4 mg/ml Vial SLOW IVP SCH ×4 (05:10→23:15)
[2023-05-22] MEDS: Divalproex Sodium DR 500 MG TAB PO SCH (09:00)
[2023-05-22] MEDS: Metoprolol Tartrate 50 MG TAB PO SCH ×2 (09:00→20:02)
[2023-05-22] MEDS: Losartan 25 MG TAB PO SCH (09:00)
[2023-05-22] MEDS: Vancomycin 1 GM in Premix Bag 1 BAG IVPB SCH (09:01)
[2023-05-22 09:15] LABS: Vancomycin, Trough 11.5 ug/mL
[2023-05-22] MEDS: Bacitracin Zinc Ointment 30 gm TUBE TOP SCH (09:53)
[2023-05-22] MEDS: Vancomycin 1.5 GRAM/300 ML BAG 1.5 GM in Premix Bag 1 BAG IVPB SCH (22:02)
[2023-05-22] MEDS: Acetaminophen 500 MG TAB PO PRN (23:15)
[2023-05-23 04:15] LABS: Hematocrit 31.3 % (42.0-52.0); Hemoglobin 10.3 g/dL (14.0-18.0); Mean Corpuscular HGB CONC 32.9 g/dL (32.0-36.0); Mean Corpuscular Hemoglobin 29.3 pg (27.0-31.0); Mean Corpuscular Volume 89.2 fl (78.0-98.0); Platelet Count 180 10x3/uL (130-400); RBC Distribution Width 16.1 % (11.5-14.5); Red Blood Cell (RBC) Count 3.51 mill/uL (4.70-6.10); White Blood Cell (WBC) Count 7.6 10x3/uL (4.8-10.8)
[2023-05-23 04:20] LABS: Delete Auto Diff?? YES; Manual Diff?? YES
[2023-05-23 04:40] LABS: ALT (SGPT) 35 U/L (8-55); AST (SGOT) 33 U/L (5-34); Albumin 2.7 g/dL (3.4-4.8); Alkaline Phosphatase 140 U/L (40-110); Anion Gap 11 mmol/L (10-20); BUN (Urea Nitrogen) 26 mg/dL (8.4-25.7); Bilirubin, Total 0.4 mg/dL (0.2-1.2); Calc. Creatinine Clearance 108 mL/min (70-130); Calcium 8.5 mg/dL (7.8-10.44); Carbon Dioxide 24 mmol/L (23-31); Chloride 109 mmol/L (98-107); Estimated GFR 99; Globulin 2.1 g/dL (2.4-3.5); Glucose 123 mg/dL (80-115); Potassium 4.2 mmol/L (3.5-5.1); Protein, Total 4.8 g/dL (5.8-8.1); Sodium 140 mmol/L (136-145)
[2023-05-23 04:46] LABS: Anisocytosis SLIGHT = 6-15 cells HPF (0-5); CellaVision Operator ID lab.sh2; Eosinophils 1 % (0-10); Hypochromia SLIGHT = 6-15 cells HPF (0-5); Large Platelets 3.8 % (0-5); Lymphocytes 12 % (21-51); Macrocytosis SLIGHT = 6-15 cells HPF (0-5); Monocytes 18 % (0-10); Neutrophil 69 % (42-75); Platelet Adequacy Comment Platelets Normal; Polychromasia SLIGHT = 2-3 cells HPF (0-2); Smudge Cells 9.5 %; Total Cell Count 105
[2023-05-23] MEDS: Dexamethasone 4 mg/ml Vial SLOW IVP SCH ×4 (05:14→22:41)
[2023-05-23] MEDS: Lactated Ringer's 1,000 ML IV SCH (05:14)
[2023-05-23] MEDS: Bacitracin Zinc Ointment 30 gm TUBE TOP SCH (10:17)
[2023-05-23] MEDS: Divalproex Sodium DR 500 MG TAB PO SCH (10:17)
[2023-05-23] MEDS: Losartan 25 MG TAB PO SCH (10:17)
[2023-05-23] MEDS: Vancomycin 1.5 GRAM/300 ML BAG 1.5 GM in Premix Bag 1 BAG IVPB SCH ×2 (10:18→22:40)
[2023-05-23] MEDS: Lidocaine 4% Topical Sol 50 ML BOT TOP SCH (10:18)
[2023-05-23] MEDS: Metoprolol Tartrate 50 MG TAB PO SCH ×2 (10:18→21:36)
[2023-05-24 06:09] LABS: #Monocytes 1.6 thou/uL (0.11-0.59); #Neutrophils 5.7 thou/uL (1.40-6.50); %Basophils 0.3 % (0.0-1.0); %Lymphocytes 16.2 % (21.0-51.0); %Monocytes 15.6 % (0.0-10.0); %Neutrophils 57.3 % (42.0-75.0); Hematocrit 33.3 % (42.0-52.0); Hemoglobin 10.8 g/dL (14.0-18.0); Mean Corpuscular HGB CONC 32.4 g/dL (32.0-36.0); Mean Corpuscular Hemoglobin 28.8 pg (27.0-31.0); Mean Corpuscular Volume 88.8 fl (78.0-98.0); Mean Platelet Volume 11.4 fL (7.4-10.4); Platelet Count 196 10x3/uL (130-400); RBC Distribution Width 15.8 % (11.5-14.5); Red Blood Cell (RBC) Count 3.75 mill/uL (4.70-6.10); White Blood Cell (WBC) Count 9.9 10x3/uL (4.8-10.8)
[2023-05-24] MEDS: Dexamethasone 4 mg/ml Vial SLOW IVP SCH ×3 (06:41→17:02)
[2023-05-24 07:27] LABS: ALT (SGPT) 44 U/L (8-55); AST (SGOT) 38 U/L (5-34); Albumin 2.8 g/dL (3.4-4.8); Alkaline Phosphatase 148 U/L (40-110); Anion Gap 12 mmol/L (10-20); BUN (Urea Nitrogen) 19 mg/dL (8.4-25.7); Bilirubin, Total 0.4 mg/dL (0.2-1.2); Calc. Creatinine Clearance 111 mL/min (70-130); Calcium 8.4 mg/dL (7.8-10.44); Carbon Dioxide 24 mmol/L (23-31); Chloride 108 mmol/L (98-107); Estimated GFR 100; Globulin 2.2 g/dL (2.4-3.5); Glucose 107 mg/dL (80-115); Sodium 140 mmol/L (136-145)
[2023-05-24 09:27] LABS: Vancomycin, Trough 16.4 ug/mL
[2023-05-24] MEDS: Divalproex Sodium DR 500 MG TAB PO SCH (09:34)
[2023-05-24] MEDS: Losartan 25 MG TAB PO SCH (09:35)
[2023-05-24] MEDS: Metoprolol Tartrate 50 MG TAB PO SCH ×2 (09:35→21:08)
[2023-05-24] MEDS: Bacitracin Zinc Ointment 30 gm TUBE TOP SCH (09:40)
[2023-05-24] MEDS: Vancomycin 1.5 GRAM/300 ML BAG 1.5 GM in Premix Bag 1 BAG IVPB SCH (11:35)
[2023-05-25] MEDS: Dexamethasone 4 mg/ml Vial SLOW IVP SCH ×4 (00:09→17:42)
[2023-05-25] MEDS: Vancomycin 1.5 GRAM/300 ML BAG 1.5 GM in Premix Bag 1 BAG IVPB SCH ×3 (00:09→21:22)
[2023-05-25 06:49] LABS: Hematocrit 36.7 % (42.0-52.0); Hemoglobin 11.9 g/dL (14.0-18.0); Mean Corpuscular HGB CONC 32.4 g/dL (32.0-36.0); Mean Corpuscular Hemoglobin 29.1 pg (27.0-31.0); Mean Corpuscular Volume 89.7 fl (78.0-98.0); Mean Platelet Volume 11.2 fL (7.4-10.4); Platelet Count 232 10x3/uL (130-400); RBC Distribution Width 16.1 % (11.5-14.5); Red Blood Cell (RBC) Count 4.09 mill/uL (4.70-6.10); White Blood Cell (WBC) Count 12.6 10x3/uL (4.8-10.8)
[2023-05-25 06:51] LABS: Delete Auto Diff?? YES; Manual Diff?? YES
[2023-05-25 07:13] LABS: Band 2 % (5-11); CellaVision Operator ID LAB.GE; Giant Platelets 1.9 % (0-5); Large Platelets 4.8 % (0-5); Lymphocytes 11 % (21-51); Metamyelocyte 3 % (0-0); Monocytes 8 % (0-10); Myelocyte 3 % (0-0); Neutrophil 71 % (42-75); Nucleated RBC (Manual Ct) 1 % (0); Platelet Adequacy Comment Platelets Normal; Polychromasia SLIGHT = 2-3 cells HPF (0-2); Reactive Lymphocytes 1 % (0-10); Total Cell Count 104
[2023-05-25 07:14] LABS: ALT (SGPT) 64 U/L (8-55); AST (SGOT) 53 U/L (5-34); Albumin 3.3 g/dL (3.4-4.8); Alkaline Phosphatase 172 U/L (40-110); Anion Gap 13 mmol/L (10-20); BUN (Urea Nitrogen) 16 mg/dL (8.4-25.7); Bilirubin, Total 0.4 mg/dL (0.2-1.2); Calc. Creatinine Clearance 113 mL/min (70-130); Calcium 8.7 mg/dL (7.8-10.44); Carbon Dioxide 25 mmol/L (23-31); Chloride 106 mmol/L (98-107); Estimated GFR 101; Globulin 2.6 g/dL (2.4-3.5); Glucose 108 mg/dL (80-115); Potassium 4.2 mmol/L (3.5-5.1); Protein, Total 5.9 g/dL (5.8-8.1); Sodium 140 mmol/L (136-145)
[2023-05-25] MEDS: Metoprolol Tartrate 50 MG TAB PO SCH ×2 (09:41→21:23)
[2023-05-25] MEDS: Divalproex Sodium DR 500 MG TAB PO SCH (09:41)
[2023-05-25] MEDS: Losartan 25 MG TAB PO SCH (09:41)
[2023-05-25] MEDS: Bacitracin Zinc Ointment 30 gm TUBE TOP SCH (12:38)
[2023-05-25 21:59] LABS: Vancomycin, Trough 15.2 ug/mL
[2023-05-25] MEDS ORDERED: Dexamethasone 4 mg/ml Vial SLOW IVP SCH (22:00)
[2023-05-26] MEDS: Dexamethasone 4 mg/ml Vial SLOW IVP SCH ×3 (02:58→17:19)
[2023-05-26 04:09] LABS: #Basophils 0.1 thou/uL (0.0-0.2); #Monocytes 1.8 thou/uL (0.11-0.59); #Neutrophils 11.1 thou/uL (1.40-6.50); %Basophils 0.7 % (0.0-1.0); %Lymphocytes 11.4 % (21.0-51.0); %Monocytes 11.1 % (0.0-10.0); %Neutrophils 67.3 % (42.0-75.0); Hematocrit 31.5 % (42.0-52.0); Hemoglobin 10.5 g/dL (14.0-18.0); Mean Corpuscular HGB CONC 33.3 g/dL (32.0-36.0); Mean Corpuscular Hemoglobin 29.2 pg (27.0-31.0); Mean Corpuscular Volume 87.7 fl (78.0-98.0); Mean Platelet Volume 11.1 fL (7.4-10.4); Platelet Count 221 10x3/uL (130-400); RBC Distribution Width 16.1 % (11.5-14.5); Red Blood Cell (RBC) Count 3.59 mill/uL (4.70-6.10); White Blood Cell (WBC) Count 16.5 10x3/uL (4.8-10.8)
[2023-05-26 04:34] LABS: ALT (SGPT) 64 U/L (8-55); AST (SGOT) 42 U/L (5-34); Albumin 2.8 g/dL (3.4-4.8); Alkaline Phosphatase 151 U/L (40-110); Anion Gap 11 mmol/L (10-20); BUN (Urea Nitrogen) 23 mg/dL (8.4-25.7); Bilirubin, Total 0.4 mg/dL (0.2-1.2); Calc. Creatinine Clearance 113 mL/min (70-130); Calcium 8.4 mg/dL (7.8-10.44); Carbon Dioxide 25 mmol/L (23-31); Chloride 108 mmol/L (98-107); Estimated GFR 101; Glucose 112 mg/dL (80-115); Potassium 4.1 mmol/L (3.5-5.1); Protein, Total 4.8 g/dL (5.8-8.1); Sodium 140 mmol/L (136-145)
[2023-05-26] MEDS: Bacitracin Zinc Ointment 30 gm TUBE TOP SCH (09:44)
[2023-05-26] MEDS: Vancomycin 1.5 GRAM/300 ML BAG 1.5 GM in Premix Bag 1 BAG IVPB SCH ×2 (09:45→22:13)
[2023-05-26] MEDS: Divalproex Sodium DR 500 MG TAB PO SCH (10:07)
[2023-05-26] MEDS: Metoprolol Tartrate 50 MG TAB PO SCH ×2 (10:08→22:13)
[2023-05-26] MEDS: Losartan 25 MG TAB PO SCH (10:09)
[2023-05-26] MEDS ORDERED: Bisacodyl 5 MG TAB PO PRN (21:12)
[2023-05-26] MEDS: Lidocaine 4% Topical Sol 50 ML BOT TOP SCH (22:09)
[2023-05-26] MEDS: Acetaminophen 500 MG TAB PO PRN (22:14)
[2023-05-27] MEDS: Dexamethasone 4 mg/ml Vial SLOW IVP SCH ×3 (03:00→22:43)
[2023-05-27 04:09] LABS: Hematocrit 33.9 % (42.0-52.0); Hemoglobin 11.2 g/dL (14.0-18.0); Mean Corpuscular Volume 87.8 fl (78.0-98.0); Mean Platelet Volume 11.1 fL (7.4-10.4); Platelet Count 243 10x3/uL (130-400); RBC Distribution Width 16.6 % (11.5-14.5); Red Blood Cell (RBC) Count 3.86 mill/uL (4.70-6.10); White Blood Cell (WBC) Count 18.2 10x3/uL (4.8-10.8)
[2023-05-27 04:19] LABS: Delete Auto Diff?? YES; Manual Diff?? YES
[2023-05-27 04:32] LABS: ALT (SGPT) 68 U/L (8-55); AST (SGOT) 39 U/L (5-34); Albumin 3.1 g/dL (3.4-4.8); Alkaline Phosphatase 156 U/L (40-110); Anion Gap 12 mmol/L (10-20); BUN (Urea Nitrogen) 22 mg/dL (8.4-25.7); Bilirubin, Total 0.5 mg/dL (0.2-1.2); Calc. Creatinine Clearance 104 mL/min (70-130); Calcium 8.6 mg/dL (7.8-10.44); Carbon Dioxide 25 mmol/L (23-31); Chloride 106 mmol/L (98-107); Estimated GFR 98; Glucose 97 mg/dL (80-115); Potassium 4.1 mmol/L (3.5-5.1); Protein, Total 5.1 g/dL (5.8-8.1); Sodium 139 mmol/L (136-145)
[2023-05-27] MEDS ORDERED: Senokot 8.6 MG TAB PO PRN ×2 (04:33→08:30)
[2023-05-27] MEDS ORDERED: Polyethylene Glycol 3350 17 GM Packet PO SCH ×2 (04:45→09:00)
[2023-05-27 05:25] LABS: Anisocytosis SLIGHT = 6-15 cells HPF (0-5); Band 3 % (5-11); CellaVision Operator ID lab.sh2; Large Platelets 1.7 % (0-5); Lymphocytes 12 % (21-51); Macrocytosis SLIGHT = 6-15 cells HPF (0-5); Monocytes 10 % (0-10); Neutrophil 76 % (42-75); Ovalocytes SLIGHT = 2-5 cells HPF (0-1); Platelet Adequacy Comment Platelets Normal; Polychromasia SLIGHT = 2-3 cells HPF (0-2); Smudge Cells 4.3 %; Total Cell Count 116; Vacuoles SLIGHT
[2023-05-27] MEDS: Divalproex Sodium DR 500 MG TAB PO SCH (08:28)
[2023-05-27] MEDS: Vancomycin 1.5 GRAM/300 ML BAG 1.5 GM in Premix Bag 1 BAG IVPB SCH ×2 (08:28→22:44)
[2023-05-27] MEDS: Losartan 25 MG TAB PO SCH (08:29)
[2023-05-27] MEDS: Metoprolol Tartrate 50 MG TAB PO SCH ×2 (08:29→22:43)
[2023-05-27] MEDS: Bacitracin Zinc Ointment 30 gm TUBE TOP SCH (08:29)
[2023-05-27] MEDS ORDERED: Senokot 8.6 MG TAB PO SCH (08:30)
[2023-05-27] MEDS: Acetaminophen 500 MG TAB PO PRN ×2 (08:31→15:28)
[2023-05-27 09:15] LABS: Vancomycin, Trough 23.8 ug/mL
[2023-05-27 21:23] LABS: Vancomycin, Trough 17.2 ug/mL
[2023-05-27] MEDS: Polyethylene Glycol 3350 17 GM Packet PO SCH (22:43)
[2023-05-28 04:29] LABS: #Basophils 0.1 thou/uL (0.0-0.2); #Monocytes 1.8 thou/uL (0.11-0.59); #Neutrophils 18.5 thou/uL (1.40-6.50); %Basophils 0.5 % (0.0-1.0); %Lymphocytes 6.2 % (21.0-51.0); %Monocytes 7.6 % (0.0-10.0); %Neutrophils 80.1 % (42.0-75.0); Hematocrit 38.2 % (42.0-52.0); Hemoglobin 12.5 g/dL (14.0-18.0); Mean Corpuscular HGB CONC 32.7 g/dL (32.0-36.0); Mean Corpuscular Volume 88.6 fl (78.0-98.0); Mean Platelet Volume 11.3 fL (7.4-10.4); Platelet Count 269 10x3/uL (130-400); RBC Distribution Width 16.8 % (11.5-14.5); Red Blood Cell (RBC) Count 4.31 mill/uL (4.70-6.10); White Blood Cell (WBC) Count 23.1 10x3/uL (4.8-10.8)
[2023-05-28 04:54] LABS: ALT (SGPT) 80 U/L (8-55); AST (SGOT) 44 U/L (5-34); Albumin 3.5 g/dL (3.4-4.8); Alkaline Phosphatase 175 U/L (40-110); Anion Gap 14 mmol/L (10-20); BUN (Urea Nitrogen) 20 mg/dL (8.4-25.7); Bilirubin, Total 0.5 mg/dL (0.2-1.2); Calc. Creatinine Clearance 103 mL/min (70-130); Calcium 8.8 mg/dL (7.8-10.44); Carbon Dioxide 22 mmol/L (23-31); Chloride 104 mmol/L (98-107); Estimated GFR 98; Globulin 2.4 g/dL (2.4-3.5); Glucose 133 mg/dL (80-115); Potassium 4.3 mmol/L (3.5-5.1); Protein, Total 5.9 g/dL (5.8-8.1); Sodium 136 mmol/L (136-145)
[2023-05-28] MEDS: Dexamethasone 4 mg/ml Vial SLOW IVP SCH (09:02)
[2023-05-28] MEDS: Divalproex Sodium DR 500 MG TAB PO SCH (09:02)
[2023-05-28] MEDS: Losartan 25 MG TAB PO SCH (09:02)
[2023-05-28] MEDS: Metoprolol Tartrate 50 MG TAB PO SCH (09:02)
[2023-05-28] MEDS: Bacitracin Zinc Ointment 30 gm TUBE TOP SCH (09:03)
[2023-05-28] MEDS: Vancomycin 1.5 GRAM/300 ML BAG 1.5 GM in Premix Bag 1 BAG IVPB SCH (09:11)
[2023-05-28] MEDS: Acetaminophen 500 MG TAB PO PRN (09:11)
[2023-05-28] MEDS: Polyethylene Glycol 3350 17 GM Packet PO SCH (09:12)
[2023-05-28] MEDS: Lidocaine 4% Topical Sol 50 ML BOT TOP SCH (11:00)
[2023-05-28 15:24] VITALS: TEMP 97.8
[2023-05-28 15:42] VITALS: BP 132/67
[2023-05-28 15:51] LABS: Bacteria/HPF None Seen HPF (None Seen); Bilirubin Negative (Negative); Blood, Urine Negative (Negative); CAUTI Indications for Culture Pelvic or flank pain; Clarity Clear (Clear); Glucose, Urine (Dipstick) Normal (Negative); Ketone, Urine Negative (Negative); Leukocyte Negative Leu/uL (Negative); Nitrite Negative (Negative); Protein, Urine (Dipstick) Negative (Neg-Trace); RBC/HPF 0-3 HPF (0-3); Specific Gravity, Urine 1.009 (1.002-1.036); Squamous Epithelial None Seen HPF (0-3); Urobilinogen Normal mg/dL (Less than 2); WBC/HPF 0-3 HPF (0-3); pH, Urine 6.5 (5.0-9.0)
[2023-05-28 15:53] LABS: Urine Culture Reflex No No
== END 2023-05-28 18:15 | DRG 853 ==
LOC: ERS 10:27 → ERHOLD 12:07 → 2NO 15:10
PROVIDERS: ADMIT Family Medicine; ATTEND Family Medicine
PROC: 3E03329 Introduction of Other Anti-infective into Peripheral Vein, Percutaneous Approach (ICD-10-PCS; 2023-05-18)
PROC: 0JBM0ZZ Excision of Left Upper Leg Subcutaneous Tissue and Fascia, Open Approach (ICD-10-PCS; principal; 2023-05-19)
PROC: 02HV33Z Insertion of Infusion Device into Superior Vena Cava, Percutaneous Approach (ICD-10-PCS; 2023-05-25)
PROC: B5181ZA Fluoroscopy of Superior Vena Cava using Low Osmolar Contrast, Guidance (ICD-10-PCS; 2023-05-25)
PROC: B548ZZA Ultrasonography of Superior Vena Cava, Guidance (ICD-10-PCS; 2023-05-25)
DX: A41.9 Sepsis, unspecified organism (principal); G93.6 Cerebral edema; L89.223 Pressure ulcer of left hip, stage 3; C15.9 Malignant neoplasm of esophagus, unspecified; N17.9 Acute kidney failure, unspecified; E87.0 Hyperosmolality and hypernatremia; C78.00 Secondary malignant neoplasm of unspecified lung; C79.31 Secondary malignant neoplasm of brain; M62.82 Rhabdomyolysis; L03.116 Cellulitis of left lower limb; I96 Gangrene, not elsewhere classified; I47.20 Ventricular tachycardia, unspecified; I12.9 Hypertensive chronic kidney disease with stage 1 through stage 4 chronic kidney disease, or unspecified chronic kidney disease; I48.91 Unspecified atrial fibrillation; N18.2 Chronic kidney disease, stage 2 (mild); E86.0 Dehydration; G40.909 Epilepsy, unspecified, not intractable, without status epilepticus; E78.00 Pure hypercholesterolemia, unspecified; R74.01 Elevation of levels of liver transaminase levels; K59.00 Constipation, unspecified; Z79.899 Other long term (current) drug therapy; Z90.89 Acquired absence of other organs; Z98.890 Other specified postprocedural states; Z95.1 Presence of aortocoronary bypass graft; Z82.49 Family history of ischemic heart disease and other diseases of the circulatory system; Z90.49 Acquired absence of other specified parts of digestive tract; R40.0 Somnolence; L89.892 Pressure ulcer of other site, stage 2
CPT/HCPCS: 36415; 36416; 36569; 70450; 70553; 71045; 72125; 72170; 80053; 80202; 81001; 82550; 82805; 83605; 83735; 84100; 84145; 84484; 85025; 85610; 85730; 87040; 87070; 87077; 87149; 87186; 87205; 88305; 93005; 94760; 96361; 96365; 96375; 97139; C1751; C9113; J0692; J0696; J1100; J1650; J1885; J2270; J2405; J2704; J3370; J3370-JW; J3490; J7120